=== PATIENT | female | born 1940 | race Caucasian/White ===

== ENCOUNTER 2021-11-07 10:42 | Day surgery (SDC) | payer MEDICARE, OTHER ==
[~2021-11-07 10:42] MED LIST: CYCLOPENTOLATE 1% OPHTH DROPS 2 ML ONE; KETOROLAC 0.45% OPHTH DROPS ONE; PHENYLEPHRINE 2.5% OPHTH 2 ML DROPS ONE; PROPARACAINE 0.5% OPHTH DROPS 15 ML ONE
[2021-11-07] MEDS ORDERED: LACTATED RINGERS 1,000 ML IV ONE (11:21)
--- NOTE | 2021-11-07 12:30 | ANESTHESIA ---
Pre-Anesthesia VS, & Labs - Diagnosis right eye cataract - Procedure Right CATIOL Vital Signs: Temp Pulse Resp BP Pulse Ox 36.9 C 64 20 149/74 H 98 11/07/21 10:50 11/07/21 10:50 11/07/21 10:50 11/07/21 10:50 11/07/21 10:50 Height: 5 ft 2 in Weight (kg): 105.6 kg Body Mass Index: 42.5 BMI Classification: Morbidly Obese - NPO >8 hours - Is Patient ?: No Home Medications and Allergies Home Medications: Ambulatory Orders Carvedilol [Coreg] 1 tab ORAL BID 11/07/21 Carvedilol [Coreg] 1 tab ORAL BID 11/07/21 Allergies/Adverse Reactions: Allergies Allergy/AdvReac Type Severity Reaction Status Date / Time No Known Drug Allergies Allergy Verified 11/07/21 11:21 Anes History & Medical History - Anesthetic History Anesthesia Complications: reports: No previous complications Family history of Anesthesia Complications: Denies Family history of Malignant Hyperthermia: Denies - Medical History Cardiovascular: reports: Hypertension Pulmonary: reports: Other Gastrointestinal: reports: None Urinary: reports: None Musculoskeletal: reports: None Endocrine/Autoimmune: reports: None Skin: reports: None - Surgical History Eyes Ears Nose Throat (EENT): reports: Cataracts Gynecologic: reports: Other Orthopedic: reports: Other Exam General: Alert, Oriented x3, Cooperative, No acute distress Dental: Poor dentition Mouth Openin Fingerbreadth Neck Mobility: Normal Mallampati classification: II Plan Anesthesia Type: MAC Consent for Procedure(s) Verified and Reviewed: Yes Code Status: Attempt Resuscitation ASA classification: 3-Severe systemic disease Is this case an emergency?: No
[2021-11-07] MEDS ORDERED: MIDAZOLAM 2 MG/2 ML VIAL ONE (12:55)
[2021-11-07] MEDS ORDERED: BRIMONIDINE 0.2% OPHTH DROPS 5 ML OPTH ONE (12:56)
[2021-11-07] MEDS ORDERED: EPINEPHrine 1 MG/ML AMP IR ONE (12:57)
[2021-11-07] MEDS ORDERED: PROPARACAINE 0.5% OPHTH DROPS 15 ML EACHEYE ONE (12:57)
[2021-11-07] MEDS ORDERED: BSS/LIDOCAINE/EPINEPHRINE 1 ML SYRINGE IO ONE (12:57)
[2021-11-07] MEDS ORDERED: VANCOMYCIN OPHTHALMI 8MG/0.8ML 8 MG/0.8 ML SYRINGE IO ONE (12:57)
[2021-11-07] MEDS ORDERED: TRIAMCIN/MOXIFLOX OPHTHALMIC 0.6 ML VIAL IO ONE ×2 (12:57→13:29)
[2021-11-07] MEDS ORDERED: TIMOLOL 0.5% OPHTH DROPS OPTH ONE (12:57)
[2021-11-07] MEDS ORDERED: TRYPAN BLUE 0.5 ML SYRINGE IO ONE (13:02)
[2021-11-07] MEDS ORDERED: LACTATED RINGERS 750 ML IV ONE (13:10)
--- NOTE | 2021-11-07 13:15 | OPERATIVE REPORT ---
Operative Report - Other Other Information/Narrative: Date of Surgery: 11/07/21 Preop Dx: Complex, visually significant cataract right eye. Complex due to lack of a red reflex requiring use of Trypan Blue to stain the anterior capsule. Cataract surgery was performed in the left eye in 2011 elsewhere. Postop Dx: Same Procedure: Phacoemulsification with posterior chamber intraocular lens implant right eye Surgeon: Dr. Robby Garcia Anesthesia: Monitored anesthesia care Complications: None Operative Indications: This is a 81-year-old F with progressive vision loss in the right eye due to 4+ nuclear sclerotic and 4+ cortical cataract. Best corrected visual acuity was hand motion vision in the right eye. Indications for surgery were: - Overall decrease in vision - Difficulty seeing words on a computer screen - Difficulty reading - Difficulty seeing words, closed captions, or game scores on TV - Difficulty seeing street signs - Difficulty driving in low light or at night The patient was consented at length concerning the risks and benefits of cataract surgery after which the patient expressed a desire to proceed with surgery. Operative Procedure: The patient was taken into OR#3 and placed under monitored anesthesia care. A surgical time-out was conducted confirming correct patient, correct procedure, and correct surgical site. The patient was given topical anesthesia and then prepped and draped in the usual sterile fashion. The eye was entered at the 6 and 3 oclock positions. Intracameral Shugarcaine was injected into the anterior chamber followed by an air bubble. Under the air bubble Trypan Blue was injected and then flushed with BSS to stqain the capsule. A dispersive viscoelastic was used to fill the anterior chamber. A continuous- tear curvilinear capsulorhexis was performed. The nucleus was hydrodissected and phacoemulsified. The cortex was evacuated using automated infusion and aspiration. A cohesive viscoelastic was injected into the capsular bag and a 22.0 diopter intraocular lens was inserted into the bag.Infusion and aspiration were used to evacuate the viscoelastic materials from the eye. The wounds were hydrated and the eye inflated to physiologic pressure using balanced salt solution. Approximately 0.25ml of a mixture of triamcinolone and moxifloxacin was injected trans-sclerally into the vitreous in the inferotemporal quadrant using a 30 gauge cannula. An additional 0.55ml of a mixture of triamcinolone, moxifloxacin, and vancomycin was injected subconjunctivally in the superior quadrant for infection and inflammation prophylaxis. Wound integrity was checked with Weck-Landy sponges. The patient was taken from the operating room in good condition and given post-op instructions.
[2021-11-07 13:33] VITALS: BP 140/94
--- NOTE | 2021-11-07 13:44 | ANESTHESIA POST OP EVALUATION ---
Anesthesia Post Eval - Post Anesthesia Eval Vitals: Last Vital Signs Temp 36.5 C 11/07/21 13:32 Pulse 60 11/07/21 13:32 Resp 16 11/07/21 13:32 BP 140/94 H 11/07/21 13:32 Pulse Ox 99 11/07/21 13:32 CV Function Including HR & BP: Stable Pain Control: Satisfactory Nausea & Vomiting: Negative Mental Status: Baseline Respiratory Status: Airway Patent Hydration Status: Satisfactory Anesthesia Complications: None
== END 2021-11-07 10:43 | disposition home or self-care (01) ==
LOC: SDS 10:42
PROVIDERS: ATTEND Ophthalmology
DX: H25.89 Other age-related cataract (principal); E66.01 Morbid (severe) obesity due to excess calories; Z68.41 Body mass index [BMI] 40.0-44.9, adult; Z98.42 Cataract extraction status, left eye
CPT/HCPCS: 66984; A9270; J3490; J7120; V2787

== ENCOUNTER 2024-02-08 07:57 | Outpatient (CLI) | payer MEDICARE, OTHER | END 2024-02-08 23:59 | disposition critical access hospital (66) | LOC: EMS 07:57 | DX: R42 Dizziness and giddiness (principal); R53.1 Weakness; R47.81 Slurred speech | CPT/HCPCS: A0425; A0429 ==

== ENCOUNTER 2024-02-08 08:18 | Observation (INO) | payer MEDICARE, OTHER ==
--- NOTE | 2024-02-08 08:31 | ED Physician Documentation ---
PD HPI FOCAL NEURO - Stated complaint Stated Complaint: CODE STROKE - History obtained from History obtained from: Patient, EMS - Additional information Additional information: 84-year-old female with history of hypertension, on carvedilol presents by EMS from home for left upper extremity weakness. Patient states that she woke up and when she went to use the restroom she felt like her hand was not responding like she wanted to and called 911. Patient states she went to bed in her usual state of health. Review of Systems Constitutional: denies: Fever, Chills Throat: denies: Dental pain / toothache, Oral lesions / sores, Sore throat Respiratory: denies: Dyspnea, Cough, Wheezing GI: denies: Abdominal Pain, Nausea, Vomiting, Constipation, Diarrhea Musculoskeletal: denies: Neck pain, Back pain, Extremity pain Neurologic: reports: Focal weakness. 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 HEENT: Cataracts - Present Medications Home Medications: Ambulatory Orders Medication Instructions Recorded Confirmed carvediloL [Coreg] 25 tab ORAL BID 11/07/21 02/08/24 - Allergies Allergies/Adverse Reactions: Allergies Allergy/AdvReac Type Severity Reaction Status Date / Time No Known Drug Allergies Allergy Verified 02/08/24 08:35 PD ED PE NORMAL - Vitals Vital signs reviewed: Yes - General General: Alert and oriented X 3, No acute distress - Neck Neck: Supple, no meningeal sign - Cardiac Cardiac: RRR, Strong equal pulses - Respiratory Respiratory: No respiratory distress, Clear bilaterally - Abdomen Abdomen: Soft, Non tender, Non distended - Derm Derm: Normal color, Warm and dry, No rash - Extremities Extremities: No deformity, No tenderness to palpate, Normal ROM s pain, No edema - Neuro Neuro: Alert and oriented X 3, 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, No sensory deficit, Normal speech, Other (LUE and LLE 4/5 strength compared to R extremities) Results - Vitals Vitals: Vital Signs - 24 hr 02/08/24 02/08/24 02/08/24 08:29 09:05 09:30 Temperature 36 C L Heart Rate 58 L 54 L 60 Respiratory 20 18 22 Rate Blood Pressure 153/74 H 181/72 H 168/89 H O2 Saturation 95 95 96 02/08/24 10:00 Temperature Heart Rate 48 L Respiratory 15 Rate Blood Pressure 170/72 H O2 Saturation 95 Oxygen O2 Source Room air - Labs Labs: Laboratory Tests 02/08/24 02/08/24 02/08/24 08:34 08:34 08:34 WBC 5.7 RBC 4.65 Hgb 13.9 Hct 42.4 MCV 91.2 MCH 29.9 MCHC 32.8 RDW 13.5 Plt Count 205 MPV 10.4 Neut # (Auto) 3.9 Lymph # (Auto) 1.1 L [place] # (Auto) 0.4 Eos # (Auto) 0.3 Baso # (Auto) 0.1 Absolute Nucleated RBC 0.00 Nucleated RBC % 0.0 PT 13.0 H INR 1.2 Sodium 137 Potassium 4.0 Chloride 104 Carbon Dioxide 30 Anion Gap 3.0 L BUN 22 H Creatinine 0.9 Estimated GFR (MDRD) 60 L Glucose 108 H Calcium 9.1 Total Bilirubin 1.0 AST 16 ALT 10 Alkaline Phosphatase 69 Total Creatine Kinase 24 L Troponin I High Sens 4.6 Total Protein 5.9 L Albumin 3.2 Globulin 2.7 Albumin/Globulin Ratio 1.2 Urine Color Urine Clarity Urine pH Ur Specific [place] Urine Protein Urine Glucose (UA) Urine Ketones Urine Occult Blood Urine Nitrite Urine Bilirubin Urine Urobilinogen Ur Leukocyte Esterase Ur Microscopic Review Urine Culture Comments 02/08/24 09:00 WBC RBC Hgb Hct MCV MCH MCHC RDW Plt Count MPV Neut # (Auto) Lymph # (Auto) [place] # (Auto) Eos # (Auto) Baso # (Auto) Absolute Nucleated RBC Nucleated RBC % PT INR Sodium Potassium Chloride Carbon Dioxide Anion Gap BUN Creatinine Estimated GFR (MDRD) Glucose Calcium Total Bilirubin AST ALT Alkaline Phosphatase Total Creatine Kinase Troponin I High Sens Total Protein Albumin Globulin Albumin/Globulin Ratio Urine Color YELLOW Urine Clarity CLEAR Urine pH 6.0 Ur Specific [place] 1.015 Urine Protein NEGATIVE Urine Glucose (UA) NEGATIVE Urine Ketones NEGATIVE Urine Occult Blood NEGATIVE Urine Nitrite NEGATIVE Urine Bilirubin NEGATIVE Urine Urobilinogen 0.2 (NORMAL) Ur Leukocyte Esterase NEGATIVE Ur Microscopic Review NOT INDICATED Urine Culture Comments NOT INDICATED PD Medical Decision Making - ED course ED course: Left upper and lower extremity weakness. Left upper and lower extremities with 4 out of 5 strength compared to right upper and lower extremities. Not tPA or TNK candidate due to wake-up onset. Preliminary review of noncontrast CT shows no acute hemorrhage. Full dose aspirin ordered. CT brain and CT angio negative for acute findings. Patient states that her arm and leg seem to be back to normal.Will admit for further evaluation. Departure - Departure Disposition: ED Place in Observation Clinical Impression: Left-sided weakness Condition: Stable Discharge Date/Time: 02/08/24 11:15
[2024-02-08 08:39] LABS: BASOPHILS # (AUTO) 0.1 10^3/uL (0.0-0.1); BASOPHILS % (AUTO) 0.9 %; EOSINOPHILS # (AUTO) 0.3 10^3/uL (0.0-0.7); EOSINOPHILS % (AUTO) 5.4 %; HCT - HEMATOCRIT 42.4 % (37.0-47.0); HGB - HEMOGLOBIN 13.9 g/dL (12.0-16.0); LYMPHOCYTES # (AUTO) 1.1 10^3/uL (1.5-3.5); LYMPHOCYTES % (AUTO) 18.9 %; MEAN CORPUSCULAR HEMOGLOBIN 29.9 pg (27.0-31.0); MEAN CORPUSCULAR HGB CONC 32.8 g/dL (32.0-36.0); MEAN CORPUSCULAR VOLUME 91.2 fL (81.0-99.0); MEAN PLATELET VOLUME 10.4 fL (7.9-10.8); MONOCYTES # (AUTO) 0.4 10^3/uL (0.0-1.0); MONOCYTES % (AUTO) 6.3 %; NEUTROPHILS # (AUTO) 3.9 10^3/uL (1.5-6.6); NEUTROPHILS % (AUTO) 68.3 %; PLT - PLATELET COUNT 205 10^3/uL (130-450); RED BLOOD COUNT 4.65 10^6/uL (4.20-5.40); RED CELL DISTRIBUTION WIDTH 13.5 % (12.0-15.0); WHITE BLOOD COUNT 5.7 x10^3/uL (4.8-10.8)
[2024-02-08] MEDS: ASPIRIN CHEW 81 MG TABLET PO STA (08:43)
[2024-02-08 08:47] LABS: INR 1.2 (0.8-1.2)
--- NOTE | 2024-02-08 08:49 | CT Report ---
PROCEDURE: Head W/O Stroke Protocol INDICATIONS: L WEAKNESS UPPER AND LOWER TECHNIQUE: Noncontrast 4.5 mm thick angled axial sections acquired from the foramen magnum to the vertex, with c oronal reformats. For radiation dose reduction, the following was used: automated exposure control, adjustment of mA and/or kV according to patient size. COMPARISON: None. FINDINGS: Image quality: Excellent. CSF spaces: Basal cisterns are patent. No extra-axial fluid collections. Ventricles are normal in size and shape. Brain: No midline shift. No intracranial masses or hemorrhage. Hsu-white matter interface is norm al. Skull and face: Calvarium and visualized facial bones are intact, without suspicious lesions. Sinuses: Visualized sinuses and mastoids are clear. IMPRESSION: No acute intracranial pathology Above discussed with Lilian Hernandez MD at the time of dictation on 02/08/24 at 0847 hours. This study fulfills neurological imaging criteria for inclusion or exclusion of acute stroke therapie s based on available published neurological imaging guidelines. Reviewed by: Adan Wu MD on 02/08/2024 8:48 AM PDT Approved by: Adan Wu MD on 02/08/2024 8:48 AM PDT Station ID: [id number]
--- NOTE | 2024-02-08 08:52 | XRAY Report ---
PROCEDURE: Chest 1V INDICATIONS: STROKE ALERT TECHNIQUE: One view of the chest was acquired. COMPARISON: None. FINDINGS: Surgical changes and devices: None. Lungs and pleura: Minimal increased vascularity. Mediastinum: Mediastinal contours appear normal. Heart size is enlarged Bones and chest wall: No suspicious bony lesions. Overlying soft tissues appear unremarkable. IMPRESSION: Cardiomegaly with slight increased vascularity, suggestive of edema. Reviewed by: Cira Paredes MD on 02/08/2024 8:51 AM PDT Approved by: Cira Paredes MD on 02/08/2024 8:51 AM PDT Station ID: [id number]
--- NOTE | 2024-02-08 08:56 | CT Report ---
PROCEDURE: Angio Head/Neck INDICATIONS: L SIDED WEAKNESS UPPER AND LOWER TECHNIQUE: After the administration of intravenous contrast, 1 mm thick sections acquired from the aortic arch t hrough the [place]. 3-dimensional ciawagu-hhxoiaoqv-ewllllawyk (MIP) and/or volume renderin g reformats were acquired of the central intracranial vasculature and neck separately. For radiation dose reduction, the following was used: automated exposure control, adjustment of mA and/or kV acco rding to patient size. CONTRAST: Omni 300 80ml COMPARISON: Stroke protocol CT head from the same day. FINDINGS: Image quality: Diagnostic. HEAD CT: CSF Spaces: Basal cisterns are patent. No extra-axial fluid collections. Ventricles are normal in size and shape. Brain: No significant abnormality is seen for scanning technique. Skull and face: Calvarium and visualized facial bones appear intact, without suspicious lesions. Sinuses: Visualized sinuses and mastoids are clear. HEAD CT ANGIOGRAPHY: Anterior circulation: Intracranial internal carotid arteries are normal in size and flow. The flow within the paired anterior cerebral arteries is normal and symmetric. The flow within the middle cer ebral arteries is normal and symmetric. The anterior communicating artery is seen. No aneurysms are seen. Posterior circulation: Visualized portions of the vertebral arteries demonstrate normal caliber, and join to form a normal appearing basilar artery. Flow within the posterior cerebral arteries is norm al and symmetric. No aneurysms are seen. NECK CT ANGIOGRAPHY: Carotid system: The great vessels demonstrate a conventional anatomy as they arise from the aortic a rch. The origins of the common carotid arteries appear patent. The common carotid arteries demonstr ate normal caliber and courses. The bifurcation regions are both widely patent. The internal caroti d arteries demonstrate normal calibers and courses. Posterior circulation: The origins of the vertebral arteries both appear widely patent. The more fernandez perior extracranial portions of both vertebral arteries also demonstrate normal courses and calibers. They join to form a normal appearing basilar artery. Soft tissues: Visualized neck soft tissues demonstrate no suspicious abnormalities. Bones: No suspicious bony lesions. Visualized cervical spine appears normally aligned. IMPRESSION: No significant intracranial arterial abnormality is seen. No significant abnormality is seen within the arteries of the neck. The estimate of stenosis included in the report of the imaging study was calculated using the NASCET method Reviewed by: Adan Wu MD on 02/08/2024 8:55 AM PDT Approved by: Adan Wu MD on 02/08/2024 8:55 AM PDT Station ID: [id number]
[2024-02-08 09:02] LABS: ALBUMIN 3.2 g/dL (3.2-5.5); ALBUMIN/GLOBULIN RATIO 1.2 (1.0-2.2); CALCIUM 9.1 mg/dL (8.5-10.3); CREATININE 0.9 mg/dL (0.6-1.3); TOTAL PROTEIN 5.9 g/dL (6.4-8.9)
[2024-02-08 09:05] LABS: TROPONIN I HIGH SENSITIVITY 4.6 ng/L (2.3-14.8)
[2024-02-08 09:07] LABS: BILIRUBIN,URINE NEGATIVE (NEGATIVE); GLUCOSE, URINE (UA) NEGATIVE (NEGATIVE); KETONES,URINE (UA) NEGATIVE (NEGATIVE); LEUKOCYTE ESTERASE, URINE NEGATIVE (NEGATIVE); NITRITE,URINE NEGATIVE (NEGATIVE); OCCULT BLOOD,URINE NEGATIVE (NEGATIVE); PROTEIN,URINE NEGATIVE (NEGATIVE); UROBILINOGEN,URINE 0.2 (NORMAL) E.U./dL (NORMAL)
[2024-02-08 09:10] LABS: CLARITY,URINE CLEAR (CLEAR)
[2024-02-08] MEDS ORDERED: iohexoL-300 100 ML VIAL ONE (09:11)
[2024-02-08] MEDS ORDERED: ONDANSETRON 4 MG/2 ML VIAL IVP PRN (10:29)
[2024-02-08] MEDS ORDERED: ACETAMINOPHEN 325 MG TABLET PO PRN (10:29)
[2024-02-08] MEDS ORDERED: HYDROcod/ACETAM 5/325 MG TABLET PO PRN (10:29)
[2024-02-08] MEDS ORDERED: ONDANSETRON ODT 4 MG TABLET TL PRN (10:29)
[2024-02-08] MEDS ORDERED: SODIUM CHLORIDE FLUSH 0.9% 10 ML SYRINGE IVP PRN (10:29)
[2024-02-08] MEDS ORDERED: HYDROmorphone 0.5 MG/0.5 ML SYRINGE IVP PRN (10:29)
--- NOTE | 2024-02-08 11:00 | PHARMACY PROGRESS NOTE ---
- Best Possible Medication History Admit Date and Time: 02/08/24 1028 Processed by: Pharmacy Medications reviewed in ED?: Yes Medication History completed: Yes Patient Interview: Completed Secondary Source(s): Insurance records As the person ultimately responsible for medication therapy, providers are able to order a medication from an existing home medication list in [facility] via the "Reconcile Routine" prior to Confirmation of that medication by data support specialist. Such practice is discouraged except when the physician, in their clinical judgment, deems that a medical need exists for a medication without regard to previous use.
[2024-02-08] MEDS: ATORVASTATIN 40 MG TABLET PO SCH (12:05)
--- NOTE | 2024-02-08 13:39 | MRI Report ---
PROCEDURE: Brain WO INDICATIONS: TIA TECHNIQUE: Noncontrast axial T1 spin echo, axial T2 fast spin echo, sagittal and axial FLAIR, coronal T2 fast sp in echo, axial gradient echo, axial diffusion and ADC through the brain. COMPARISON: Stroke protocol CT head dated 02/08/2024. FINDINGS: Image quality: Excellent. CSF Spaces: Basal cisterns are patent. No extra-axial fluid collections. Ventricles are normal in size and shape. Brain: No intracranial masses or hemorrhage. Hsu/white matter interface is normal. Brainstem appe ars normal. Diffusion-weighted images demonstrate no acute ischemic insult. No chronic ischemic ins ults. Normal intravascular flow voids are present. There is age-related volume loss and moderate pe riventricular white matter change consistent with small vessel ischemic change. Skull and face: Calvarium has normal marrow signal. Orbits appear normal. Sinuses: Sinuses and mastoids are clear. IMPRESSION: 1. No acute intracranial process. 2. Age-related volume loss and moderate, age-appropriate small vessel ischemic change. Reviewed by: Adan Wu MD on 02/08/2024 1:37 PM PDT Approved by: Adan Wu MD on 02/08/2024 1:37 PM PDT Station ID: [id number]
[2024-02-08] MEDS: iohexoL-300 100 ML VIAL IVP ONE (14:03)
[2024-02-08] MEDS: NYSTATIN POWDER 15 GM TOP SCH (14:06)
--- NOTE | 2024-02-08 14:15 | HISTORY & PHYSICAL EXAMINATION ---
Chief Complaint - Chief Complaint Chief Complaint: Weakness, fall History of Present Illness - Admitted From Admitted From:: ED - History Obtained From Records Reviewed: Yes History obtained from: Patient Exam Limitations: None - History of Present Illness HPI Comment/Other: Patient is an 84-year-old female the past medical history of hypertension who presented to the ED due to complaints of left upper and lower extremity weakness resulting in a fall at home. Upon presentation to the ED her symptoms had resolved. She was deemed not a tPA candidate as the time of onset was unknown. A CT head was performed which was unremarkable. This was followed by a CTA head which did not show any evidence of large vessel obstruction. Patient was admitted to the floor and an MRI was performed which was negative for an acute stroke however did show chronic microvascular disease. She was given a diagnosis of a TIA. During my evaluation patient denied any acute complaints. Her only medication is carvedilol which she takes. Her blood pressures have been running a little bit high and would likely need to be treated tomorrow. 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 HEENT: reports: Cataracts Meds/Allgy - Home Medications Home Medications: Ambulatory Orders Medication Instructions Recorded Confirmed carvediloL [Coreg] 25 tab ORAL BID 11/07/21 02/08/24 - Allergies Allergies/Adverse Reactions: Allergies Allergy/AdvReac Type Severity Reaction Status Date / Time No Known Drug Allergies Allergy Verified 02/08/24 08:35 Review of Systems - Constitutional Constitutional: denies: Fatigue, Fever, Chills, Malaise - Eyes Eyes: denies: Field loss, Vision loss, Dipolpia - Cardiovascular Cariovascular: denies: Irregular heart rate, Palpitations, Chest pain - Respiratory Respiratory: denies: Sputum production, Wheezing - Gastrointestinal Gastrointestinal: denies: Abdominal pain, Abdominal distention - Neurological Neurological: denies: Focal weakness, Headache, Slurred speech - All Other Systems All Other Systems: reports: Reviewed and negative Exam - Vital Signs Reviewed Vital Signs: Yes Vital Signs: Vital Signs x48h Temp Pulse Pulse Resp BP BP Pulse Ox 02/08/24 11:36 36.6 C 52 L 16 159/75 H 96 02/08/24 11:00 52 L 15 165/75 H 96 02/08/24 10:30 50 L 14 155/71 H 95 02/08/24 10:00 48 L 15 170/72 H 95 02/08/24 09:30 60 22 168/89 H 96 02/08/24 09:05 54 L 18 181/72 H 95 02/08/24 08:29 36 C L 58 L 20 153/74 H 95 - Physical Exam General Appearance: positive: No acute distress Respiratory: positive: Chest non-tender, No respiratory distress, Breath sounds nml Cardiovascular: positive: Regular rate & rhythm, No murmur, No gallop Abdomen: positive: Non-tender, No organomegaly, Nml bowel sounds, No distention Neurologic/Psychiatric: positive: Oriented x3, CN's nml (2-12), Mood/affect nml Conclusion/Plan - Problem List (1) Left-sided weakness Conclusion/Plan: --MRI negative for stroke. Event was likely a TIA. Her symptoms have completely resolved. --Started on DAPT with aspirin and Plavix. Have also started Atorvastatin 40 mg daily. --A1c and lipid panel pending. --PT/OT --Tele monitoring. TTE has been performed. Result pending. --No LVO on CTA head. (2) Hypertension Conclusion/Plan: --Currently on carvedilol which has been continued. Will need to start optimizing BP control tomorrow. Disp: 23 hour observation. Anticipate discharge tomorrow. - Lab Results Fish Bones: 02/08/24 08:34 02/08/24 08:34
[2024-02-08] MEDS: SODIUM CHLORIDE FLUSH 0.9% 10 ML SYRINGE IVP SCH (16:06)
[2024-02-08] MEDS: carvediloL 12.5 MG TABLET PO SCH (20:55)
[2024-02-08] MEDS ORDERED: METOPROLOL 5 MG/5 ML VIAL IVP PRN (23:42)
[2024-02-09 06:02] LABS: BASOPHILS % (AUTO) 0.7 %; EOSINOPHILS # (AUTO) 0.2 10^3/uL (0.0-0.7); EOSINOPHILS % (AUTO) 3.8 %; HCT - HEMATOCRIT 45.3 % (37.0-47.0); HGB - HEMOGLOBIN 14.7 g/dL (12.0-16.0); LYMPHOCYTES # (AUTO) 1.3 10^3/uL (1.5-3.5); LYMPHOCYTES % (AUTO) 20.6 %; MEAN CORPUSCULAR HEMOGLOBIN 29.8 pg (27.0-31.0); MEAN CORPUSCULAR HGB CONC 32.5 g/dL (32.0-36.0); MEAN CORPUSCULAR VOLUME 91.7 fL (81.0-99.0); MONOCYTES # (AUTO) 0.4 10^3/uL (0.0-1.0); MONOCYTES % (AUTO) 6.2 %; NEUTROPHILS # (AUTO) 4.2 10^3/uL (1.5-6.6); NEUTROPHILS % (AUTO) 68.5 %; PLT - PLATELET COUNT 187 10^3/uL (130-450); RED BLOOD COUNT 4.94 10^6/uL (4.20-5.40); RED CELL DISTRIBUTION WIDTH 13.3 % (12.0-15.0); WHITE BLOOD COUNT 6.1 x10^3/uL (4.8-10.8)
[2024-02-09 06:34] LABS: BUN - BLOOD UREA NITROGEN 19 mg/dL (6-20); CALCIUM 9.2 mg/dL (8.5-10.3); CARBON DIOXIDE - CO2 24 mmol/L (21-32); CHLORIDE 108 mmol/L (101-111); CHOL/HDL RATIO 3.2 (<4.4); CHOLESTEROL 129 mg/dL; CREATININE 0.8 mg/dL (0.6-1.3); GFR - MDRD 69 (>89); GLUCOSE 97 mg/dL (74-104); HDL CHOLESTEROL 40 mg/dL; LDL CHOLESTEROL,CALCULATED 75 mg/dL; LDL/HDL RATIO 1.9 (<4.4); POTASSIUM 3.8 mmol/L (3.5-4.5); SODIUM 140 mmol/L (135-145); TRIGLYCERIDES 70 mg/dL (48-352); VLDL CHOLESTEROL 14 mg/dL
[2024-02-09] MEDS: CLOPIDOGREL 75 MG TABLET PO SCH (08:57)
[2024-02-09] MEDS: ASPIRIN EC 81 MG TABLET PO SCH (08:57)
[2024-02-09] MEDS: ENOXAPARIN 40 MG/0.4 ML SYRINGE SUBQ SCH (08:57)
[2024-02-09 10:19] LABS: ESTIMATED AVERAGE GLUCOSE 105 mg/dL (70-100); HEMOGLOBIN A1c% 5.3 % (4.27-6.07)
[2024-02-09 12:03] VITALS: BP 133/65; O2SAT 94
--- NOTE | 2024-02-09 14:04 | Discharge Plan ---
Discharge Plan Problem Reviewed?: Yes Disposition: Home, Self Care Condition: Stable Prescriptions: Atorvastatin [Lipitor] 40 mg PO DAILY #30 tab Nystatin [Nystop] 1 applic TOP BID 7 Days #1 each Clopidogrel [Plavix] 75 mg PO DAILY #21 tab Diet: Cardiac Activity Restrictions: Activity as Tolerated Shower Restrictions: No Driving Restrictions: Yes (no driving) Assistance Devices: [facility] Concerns: you presented to the emergency room with new complaints of weakness on one side of your body. By the time you got to the emergency room the weakness had gone away. We were afraid that you are having a stroke so we did an angiogram of your brain arteries, and a brain MRI. All of these show that you have age- related appropriate volume loss of your brain tissue and hardening of the arteries. But no stroke. We watched your rhythm overnight to make sure you are not having an irregular heartbeat and it was normal. We also did an ultrasound of your heart to make sure that you did not have any valve dysfunction to cause you to have a stroke and your echocardiogram is also normal. the only other problem we found, which was a very mild problem, was that of yeast infection in the folds of your skin. We started you on an antifungal lotion. You need to use that once or twice a day for the next week Plan of Treatment: 1. Please see your primary care provider in follow-up in the next 1 to 2 weeks. 2. To reduce your risk of stroke we have started you on a blood thinner called Plavix. You already take a blood thinner in the form of aspirin. You will take the Plavix and the aspirin for 21 days and then stop the Plavix. 3. Make sure you take a cholesterol pill and that you keep your blood pressure as normal as possible to also reduce your risk of stroke. Care Goals: To remain at home, under the care of your son. Assessment: Patient is awake, alert to person, place, but not time. Follow-Up Care: Home Health - PT, Home Health - OT No Smoking: If you smoke, Please STOP! Call for help.
--- NOTE | 2024-02-09 14:12 | DISCHARGE SUMMARY ---
Discharge Summary Admit Date: 02/08/24 Discharge Date: 02/09/24 Discharging Provider: Mary Lou Epperson MD Code Status: Attempt Resuscitation Condition at Discharge: Stable Discharge Disposition: 01 Home, Self Care - DIAGNOSES Discharge Diagnoses with Status of Each Condition: 1. Symptoms of a stroke 2. Hypertension 3. Moderate cognitive deficits 4. Karla intertrigo - HPI History of Present Illness: Patient is an 84-year-old female the past medical history of hypertension who presented to the ED due to complaints of left upper and lower extremity weakness resulting in a fall at home. Upon presentation to the ED her symptoms had resolved. She was deemed not a tPA candidate as the time of onset was unknown. A CT head was performed which was unremarkable. This was followed by a CTA head which did not show any evidence of large vessel obstruction. Patient was admitted to the floor and an MRI was performed which was negative for an acute stroke however did show chronic microvascular disease. She was given a diagnosis of a TIA. During my evaluation patient denied any acute complaints. Her only medication is carvedilol which she takes. Her blood pressures have been running a little bit high and would likely need to be treated tomorrow. - Past Medical History Cardiovascular: reports: Hypertension Respiratory: reports: Other Endocrine/Autoimmune: reports: None GI: reports: None : reports: None HEENT: reports: None Psych: reports: None Musculoskeletal: reports: None Derm: reports: None MRSA Hx?: No - Past Surgical History Ortho: reports: Other /[employer]IST[employer]: reports: Other HEENT: reports: Cataracts - ALLERGIES Allergies/Adverse Reactions: Allergies Allergy/AdvReac Type Severity Reaction Status Date / Time No Known Drug Allergies Allergy Verified 02/08/24 08:35 - MEDICATIONS Home Medications: Ambulatory Orders Medication Instructions Recorded Confirmed carvediloL [Coreg] 25 tab ORAL BID 11/07/21 02/08/24 Aspirin EC [Ecotrin] 81 mg PO DAILY tab 02/09/24 Atorvastatin [Lipitor] 40 mg PO DAILY #30 tab 02/09/24 Clopidogrel [Plavix] 75 mg PO DAILY #21 tab 02/09/24 Nystatin [Nystop] 1 applic TOP BID 7 Days #1 each 02/09/24 - LABS Result Diagrams: 02/09/24 05:35 02/09/24 05:35
== END 2024-02-09 15:37 | disposition home or self-care (01) ==
LOC: EDBD → ED 08:18 → MS2 10:28
PROVIDERS: ADMIT Family Medicine; ATTEND Specialist
DX: G45.9 Transient cerebral ischemic attack, unspecified (principal); R29.898 Other symptoms and signs involving the musculoskeletal system; I10 Essential (primary) hypertension; R41.89 Other symptoms and signs involving cognitive functions and awareness; B37.2 Candidiasis of skin and nail; Z79.899 Other long term (current) drug therapy; Z91.81 History of falling
CPT/HCPCS: 36415; 70450; 70496; 70498; 70551; 71045; 80048; 80053; 80061; 81003; 82550; 83036; 84484; 85025; 85610; 93005; 93307; 96372; 97116; 97162; 97166; 97530; 97535; 99283; 99285; A9270; G0378; J1650; Q9967; 81001; 83721; 87086